=== PATIENT | male | born 1965 | race American Indian/Alaskan Native ===

== ENCOUNTER 2016-12-21 08:40 | Emergency (ER) | payer SELFPAY ==
--- NOTE | 2016-12-21 10:28 | Cat Scan Report ---
CT HEAD WITHOUT CONTRAST: HISTORY: Headache, aneurysm, CVA. Compared to 07/14/13. There is no evidence for hemorrhage, mass or extra-axial fluid collection. No large area of acute ischemia is appreciated. 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 Chronic left pontine infarct measures 11 mm. Chronic left frontal white matter infarct measures 10 mm. Ventricular size is within normal limits. The basal cisterns are clear. The marsh-white interface is preserved. Surgical coils along the right side of the [place] near the ICA terminus is noted and consistent with previous aneurysm repair. No additional aneurysms or signs of hemorrhage are appreciated. The mastoid air cells and visualized portions of the sinuses are normal. IMPRESSION: Chronic findings as described above. No acute intracranial process.
[2016-12-21] MEDS ORDERED: TYLENOL PO ONE (12:52)
[2016-12-21] MEDS ORDERED: CATAPRES PO ONE (12:52)
[2016-12-21 13:35] VITALS: BP 198/108
--- NOTE | 2016-12-21 13:36 | Emergency Department Report ---
Entered by DEBO NG, acting as scribe for MARY SANCHEZ PA. ED General Adult HPI - General Chief complaint: Headache Stated complaint: MEDS REFILL Time Seen by Provider: 12/21/16 11:42 Source: patient Mode of arrival: Ambulatory Limitations: No Limitations - History of Present Illness Initial comments: 51 y/o male with PMHx of aneurysm (2011) and HTN, presents to the ED requesting medication refill of amlodipine 10 mg for HTN. He states he has been non- compliant with the medication for 2 weeks and has been experiencing some intermittent 5 second episodes of sharp and shooting headache. He denies chest pain, SOB, nausea, vomiting, numbness, weakness, dizziness, and fever. He denies having a PCP but states that he has previously had the aneurysms followed up at [place]. Complaint: medication refill, intermittent headache -: week(s) (2) Location: head Radiation: non-radiation Quality: sharp, other (shooting, intermittent) Consistency: intermittent Improves with: none Worsens with: none Associated Symptoms: headaches. denies: chest pain, fever/chills, nausea/ vomiting, shortness of breath, weakness, other (numbness, dizziness, visual changes) Treatments Prior to Arrival: none - Related Data Previous Rx's Medication Instructions Recorded Last Taken Type amLODIPine [Norvasc] 10 mg PO DAILY #30 tab 07/14/13 Unknown Rx amLODIPine [Norvasc] 10 mg PO DAILY #40 tab 12/21/16 Unknown Rx Allergies Allergy/AdvReac Type Severity Reaction Status Date / Time No Known Allergies Allergy Verified 12/21/16 09:14 ED Review of Systems Comment: All other systems reviewed and negative Constitutional: denies: chills, fever, weakness Respiratory: denies: shortness of breath Cardiovascular: denies: chest pain Gastrointestinal: denies: nausea, vomiting Neurological: headache. denies: weakness, numbness, other (dizziness, visual changes) ED Past Medical Hx - Past Medical History Hx Hypertension: Yes Hx CVA: Yes Additional medical history: Cerebral Aneurysm - Surgical History Additional Surgical History: BRAIN ANEURYSM CLIPPED - Social History Smoking Status: Former Smoker Substance Use Type: Alcohol - Medications Home Medications: Home Medications Medication Instructions Recorded Confirmed Last Taken Type amLODIPine [Norvasc] 10 mg PO DAILY #30 tab 07/14/13 12/21/16 Unknown Rx amLODIPine [Norvasc] 10 mg PO DAILY #40 tab 12/21/16 Unknown Rx ED Physical Exam - General Limitations: No Limitations - Other Other exam information: GENERAL: Patient is alert and oriented x 3. No apparent distress, normal gait, atraumatic. HEAD: Head is normocephalic and atraumatic. EYES: Extraocular movements are intact. Pupils are equal, round, and reactive to light and accommodation. EARS: Symmetrical, atraumatic, non tender NOSE: Nose symmetrical, nontender. Nares appeared normal. MOUTH:Mouth is well hydrated and without lesions. NECK: Supple. Non edematous, no carotid bruits. No lymphadenopathy or thyromegaly. LUNGS: Symmetrical with respiration. No wheezing, rales or crackles, CTAB. HEART: Regular rate and rhythm with normal S1/S2 present. No murmurs, rubs, or gallops. ABDOMEN: Soft, nondistended. Nontender to palpation on all quadrants. No organomegaly was noted. Positive bowel sounds. No CVA tenderness. EXTREMITIES/MUSCULOSKELETAL: No cyanosis, clubbing, rash, lesions or edema. Full ROM bilaterally. UE/LE Pulses 2+ bilaterally. LE and UE 5+ strength bilaterally SKIN: Warm and dry. No lesions, ulceration or induration present NEUROLOGIC: No focal deficit. Cranial nerves II - XII are grossly intact. No loss of sensation. No facial droop. Negative romberg. ED Course Vital Signs 12/21/16 09:07 Temperature 98.5 F Pulse Rate 65 Respiratory 17 Rate Blood Pressure 188/100 O2 Sat by Pulse 100 Oximetry ED Medical Decision Making - Radiology Data Radiology results: report reviewed, image reviewed CT HEAD WITHOUT CONTRAST: HISTORY: Headache, aneurysm, CVA. Compared to 07/14/13. There is no evidence for hemorrhage, mass or extra-axial fluid collection. No large area of acute ischemia is appreciated. 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 Chronic left pontine infarct measures 11 mm. Chronic left frontal white matter infarct measures 10 mm. Ventricular size is within normal limits. The basal cisterns are clear. The marsh-white interface is preserved. Surgical coils along the right side of the [place] near the ICA terminus is noted and consistent with previous aneurysm repair. No additional aneurysms or signs of hemorrhage are appreciated. The mastoid air cells and visualized portions of the sinuses are normal. IMPRESSION: Chronic findings as described above. No acute intracranial process. Transcribed By: TTR Dictated By: VANNA SAHU JR, MD Electronically Authenticated By: VANNA SAHU JR, MD Signed Date/Time: 12/21/16 1021 - Medical Decision Making 51 y/o male presents requesting medication refill (amlodipine 10 mg). The patient's head CT shows no acute changes. See above The patient is in no acute distress and is not ill-appearing, with stable vital signs. Discussed with the patient to follow up with a PCP as referred, and to return to the ED if the symptoms return or worsen. The patient states understanding and will follow instructions. ED Disposition Clinical Impression: Medication refill, Uncontrolled hypertension Disposition: DISCHARGED TO HOME OR SELFCARE Is pt being admited?: No Does the pt Need Aspirin: No Condition: Stable Instructions: Hypertension (ED) Additional Instructions: Follow-up with primary care physician as referred. If worsening symptoms please return to ED. His new onset of symptoms arise return to ED. Take medications daily as discussed Prescriptions: amLODIPine [Norvasc] 10 mg PO DAILY #40 tab Referrals: PRIMARY CAREMD [Primary Care Provider] - 3-5 Days JAYNE DUPONT MD [Referring] - 3-5 Days [facility] [Outside] - 3-5 Days [email or web address] - 3-5 Days [facility] [Outside] - 3-5 Days [facility] [Outside] - 3-5 Days Forms: Work/School Release Form(ED) Time of Disposition: 12:38 This documentation as recorded by the BERENICE senior GRACE,accurately reflects the service I personally performed and the decisions made by ,MARY SANCHEZ PA.
== END 2016-12-21 13:34 | disposition home or self-care (01) ==
LOC: ED 08:40
DX: I10 Essential (primary) hypertension (principal); Z87.891 Personal history of nicotine dependence; I67.1 Cerebral aneurysm, nonruptured; Z86.73 Personal history of transient ischemic attack (TIA), and cerebral infarction without residual deficits
CPT/HCPCS: 70450